=== PATIENT | male | born 1965 | race Caucasian/White ===

== ENCOUNTER 2023-06-09 08:44 | Day surgery (SDC) | payer BC ==
[2023-06-09] MEDS: Lactated Ringers 1,000 ML IV SCH (09:11)
[2023-06-09] MEDS ORDERED: Propofol 200 MG/20 ML SDV ONE ×3 (09:40→09:52)
[2023-06-09] MEDS ORDERED: Lidocaine 2% 5 ML SDV ONE (09:40)
[2023-06-09] MEDS ORDERED: Lactated Ringers 1,000 ML IV SCH (10:45)
== END 2023-06-09 11:15 | disposition home or self-care (01) ==
LOC: MW.SDS 08:44
PROVIDERS: ATTEND Surgery
DX: Z12.11 Encounter for screening for malignant neoplasm of colon (principal); D12.4 Benign neoplasm of descending colon; K21.00 Gastro-esophageal reflux disease with esophagitis, without bleeding; K29.50 Unspecified chronic gastritis without bleeding; K22.70 Barrett's esophagus without dysplasia; K64.9 Unspecified hemorrhoids; K44.9 Diaphragmatic hernia without obstruction or gangrene; E78.00 Pure hypercholesterolemia, unspecified; F17.290 Nicotine dependence, other tobacco product, uncomplicated; Z79.899 Other long term (current) drug therapy
CPT/HCPCS: 00813; J2704; J3490; J7120